=== PATIENT | male | born 1995 | race Caucasian/White ===

== ENCOUNTER 2017-04-19 09:54 | Emergency (ER) | payer BC ==
[2017-04-19 10:30] VITALS: BP 131/84
--- NOTE | 2017-04-19 10:41 | UC ---
Throat Pain/Nasal Sinan HPI - HPI Summary HPI Summary: 22 year old male presents with complains of sore throat. - History of Current Complaint Chief Complaint: UCGeneralIllness Stated Complaint: ST Time Seen by Provider: 04/19/17 10:39 Hx Obtained From: Patient Onset/Duration: Sudden Onset Severity: Moderate - Allergies/Home Medications Allergies/Adverse Reactions: Allergies Allergy/AdvReac Type Severity Reaction Status Date / Time Amoxicillin [From Augmentin] Allergy Intermediate Hives Verified 04/19/17 10:30 Clavulanic Acid Allergy Intermediate Hives Verified 04/19/17 10:30 [From Augmentin] PMH/Surg Hx/FS Hx/Imm Hx - Surgical History Surgical History: Yes Surgery Procedure, Year, and Place: appy. adenoids - Social History Alcohol Use: Occasionally Substance Use Type: None Smoking Status (MU): Never Smoked Tobacco - Immunization History Most Recent Influenza Vaccination: none Review of Systems Constitutional: Negative Skin: Negative Eyes: Negative ENT: Sore Throat, Nasal Discharge, Sinus Congestion, Sinus Pain/Tenderness Respiratory: Negative Cardiovascular: Negative Gastrointestinal: Negative Genitourinary: Negative Motor: Negative Neurovascular: Negative Musculoskeletal: Negative Neurological: Negative Psychological: Negative All Other Systems Reviewed And Are Negative: Yes Physical Exam Triage Information Reviewed: Yes Vital Signs: Initial Vital Signs Temp 36.8 C 04/19/17 10:26 Pulse 91 04/19/17 10:26 Resp 16 04/19/17 10:26 BP 131/84 04/19/17 10:26 Pulse Ox 100 04/19/17 10:26 Eye Exam: Normal ENT: Positive: Nasal congestion, Nasal drainage, Tonsillar swelling Dental Exam: Normal Neck exam: Normal Neck: Positive: 1 Respiratory Exam: Normal Cardiovascular Exam: Normal Abdominal Exam: Normal Musculoskeletal Exam: Normal Neurological Exam: Normal Psychological Exam: Normal Skin Exam: Normal Throat Pain/Nasal Course/Dx - Differential Dx/Diagnosis Provider Diagnoses: strep throat. sore throat Discharge - Discharge Plan Condition: Stable Disposition: HOME Prescriptions: Azithromyxin KAI (NF) [Z-Kai (Zithromax) 250 mg tabs #6] 2 tab PO .TODAY, THEN 1 DAILY #6 tab Magic M W2 Rodrigue/Maal/Nyst/Lido* 5 ml SWISH SPIT QID #120 ml Methylprednisolone [Medrol Dosepak 4 MG*] 4 mg PO .SEE KAI INSTRUCTION #21 tab Patient Education Materials: Pharyngitis (ED), Strep Throat (ED) Referrals: MORA Santiago [Primary Care Provider] -
== END 2017-04-19 10:52 | disposition home or self-care (01) ==
LOC: UCCORT 09:54
DX: J02.0 Streptococcal pharyngitis (principal)
CPT/HCPCS: 87651; 99212; G0463